=== PATIENT | male | born 1965 | race Caucasian/White ===

== ENCOUNTER 2022-10-30 12:00 | Observation (INO) ==
[2022-10-30] MEDS ORDERED: HYOSCYAMINE SULFATE ODT PO PRN (15:14)
[2022-10-30] MEDS ORDERED: NS 1,000 ML IV 1,000 ML ONE (15:36)
[2022-10-30 15:40] LABS: BASOPHILS # (AUTO) 0.1 X10^3/uL (0.0-0.1); BASOPHILS % (AUTO) 0.7 % (0.2-1.0); EOSINOPHILS % (AUTO) 0.4 % (0.9-2.9); HEMATOCRIT 37.6 % (42.0-54.0); HEMOGLOBIN 12.9 g/dL (13.5-18.0); LYMPHOCYTES % (AUTO) 13.2 % (21.0-51.0); MEAN CORPUSCULAR HEMOGLOBIN 29.5 pg (27.0-34.0); MEAN CORPUSCULAR HGB CONC 34.4 g/dL (33.0-35.0); MEAN CORPUSCULAR VOLUME 85.8 fL (80.0-100.0); MEAN PLATELET VOLUME 7.5 fL (7.4-11.0); MONOCYTES # (AUTO) 0.9 x10^3/uL (0.3-0.8); MONOCYTES % (AUTO) 11.7 % (0.0-13.0); NEUTROPHILS # (AUTO) 5.6 x10^3/uL (2.2-4.8); RED BLOOD COUNT 4.38 X10^6/uL (4.7-6.0); RED CELL DISTRIBUTION WIDTH 13.6 % (11.6-16.5); WHITE BLOOD COUNT 7.5 X10^3/uL (3.6-10.0)
[2022-10-30 15:41] LABS: ERYTHROCYTE SEDIMENTATION RATE 8 MM/HOUR (0-15)
[2022-10-30] MEDS: NS 1,000 ML IV 1,000 ML IV SCH (15:42)
[2022-10-30] MEDS: PROTONIX INJ 40 MG VIAL IVP SCH (15:42)
[2022-10-30 15:48] LABS: ALANINE AMINOTRANSFERASE 14 Units/L (12-78); ALBUMIN 3.5 g/dL (3.4-5.0); ALKALINE PHOSPHATASE 52 Units/L (46-116); ASPARTATE AMINO TRANSFERASE < 6 Units/L (15-37); BLOOD UREA NITROGEN 21 mg/dL (7-18); CALCIUM 8.7 mg/dL (8.5-10.1); CARBON DIOXIDE 29.3 mmol/L (21-32); CHLORIDE 97 mmol/L (98-107); COR NA(FOR HYPERGLY) 141 mmol/L (136-145); CREATINE KINASE 68 Units/L (39-308); CREATININE 2.69 mg/dL (0.70-1.30); SODIUM 135 mmol/L (136-145); TOTAL PROTEIN 6.1 g/dL (6.4-8.2); eGFR NON BLACK RACES 26 (>60)
[2022-10-30 15:50] LABS: BILIRUBIN,URINE NEGATIVE (NEGATIVE); BLOOD/HEMOGLOBIN,URINE 2+ (NEGATIVE); GLUCOSE, URINE 3+ (NEGATIVE); KETONES,URINE 1+ (NEGATIVE); LEUKOCYTE ESTERASE ,URINE 3+ (NEGATIVE); NITRITES,URINE NEGATIVE (NEGATIVE); PROTEIN,URINE 4+ (NEGATIVE); UROBILINOGEN,URINE NORMAL (NORMAL)
[2022-10-30 15:57] LABS: APPEARANCE,URINE HAZY (CLEAR); BACTERIA,URINE 2+ /HPF (NEGATIVE); COLOR,URINE YELLOW (YELLOW); SQUAMOUS EPITHELIAL CELL,UR FEW /HPF (NEGATIVE)
--- NOTE | 2022-10-30 16:43 | RAD ---
EXAM: CHEST X-RAYHISTORY: Dyspnea on exertion.TECHNIQUE: AP CXR dated October 30, 2022 at 3:24 PM.COMPARISON: None available.FINDINGS:The heart size and mediastinum are within normal limits. The lung palmer and costophrenic angles are clear. There is no acute parenchymal infiltrate, pleural effusion, or pneumothorax seen. The visualized bony structures are within normal limits.IMPRESSION:1. No evidence for acute cardiopulmonary disease seen.Electronically signed by: Zeke Jauregui (Oct 30, 2022 16:42:17)
[2022-10-30] MEDS: ROCEPHIN VIAL 1 GRAM 1 G in NS 100 ML IV 100 ML IV SCH (17:26)
[2022-10-30] MEDS ORDERED: NovoLIN R (or HumuLIN R) SUBCUT PRN (17:34)
[2022-10-30] MEDS: SNACK - Diabetic Appropriate PO SCH (21:12)
[2022-10-31] MEDS: NS 1,000 ML IV 1,000 ML IV SCH ×4 (01:44→20:41)
[2022-10-31 06:08] LABS: BASOPHILS # (AUTO) 0.1 X10^3/uL (0.0-0.1); EOSINOPHILS # (AUTO) 0.1 x10^3/uL (0.0-0.2); EOSINOPHILS % (AUTO) 1.7 % (0.9-2.9); HEMATOCRIT 36.1 % (42.0-54.0); HEMOGLOBIN 12.4 g/dL (13.5-18.0); LYMPHOCYTES # (AUTO) 1.6 X10^3/uL (1.3-2.9); LYMPHOCYTES % (AUTO) 21.2 % (21.0-51.0); MEAN CORPUSCULAR HEMOGLOBIN 29.3 pg (27.0-34.0); MEAN CORPUSCULAR HGB CONC 34.4 g/dL (33.0-35.0); MEAN CORPUSCULAR VOLUME 85.2 fL (80.0-100.0); MONOCYTES % (AUTO) 12.4 % (0.0-13.0); NEUTROPHILS # (AUTO) 4.9 x10^3/uL (2.2-4.8); NEUTROPHILS % (AUTO) 63.7 % (42.0-75.0); RED BLOOD COUNT 4.24 X10^6/uL (4.7-6.0); RED CELL DISTRIBUTION WIDTH 13.8 % (11.6-16.5); WHITE BLOOD COUNT 7.7 X10^3/uL (3.6-10.0)
[2022-10-31 06:32] LABS: ALANINE AMINOTRANSFERASE 13 Units/L (12-78); ALBUMIN 3.2 g/dL (3.4-5.0); ALKALINE PHOSPHATASE 48 Units/L (46-116); ASPARTATE AMINO TRANSFERASE < 6 Units/L (15-37); BLOOD UREA NITROGEN 24 mg/dL (7-18); CALCIUM 8.3 mg/dL (8.5-10.1); CARBON DIOXIDE 27.7 mmol/L (21-32); CHLORIDE 101 mmol/L (98-107); COR CA(FOR HYPOALB) 8.9 mg/dL (8.5-10.1); COR NA(FOR HYPERGLY) 140 mmol/L (136-145); CREATININE 2.52 mg/dL (0.70-1.30); SODIUM 138 mmol/L (136-145); TOTAL PROTEIN 5.8 g/dL (6.4-8.2); eGFR NON BLACK RACES 28 (>60)
[2022-10-31] MEDS: ARIMIDEX PO SCH (08:36)
[2022-10-31] MEDS: PROTONIX INJ 40 MG VIAL IVP SCH (08:39)
[2022-10-31] MEDS: ROCEPHIN VIAL 1 GRAM 1 G in NS 100 ML IV 100 ML IV SCH ×2 (08:43→08:44)
[2022-10-31] MEDS: ZOFRAN TAB 4 MG PO PRN (08:49)
[2022-10-31] MEDS ORDERED: ACTOS PO SCH (09:00)
[2022-10-31] MEDS ORDERED: FLOMAX PO SCH (09:00)
[2022-10-31] MEDS: MORPHINE SULFATE INJ 2 MG INJ IVP PRN ×2 (10:06→16:26)
[2022-10-31] MEDS: MYCOPHENOLATE SODIUM 360 MG PO SCH (10:18)
--- NOTE | 2022-10-31 13:55 | DR.H&P ---
H&P - History & Physical for Day of: H&P Date: 10/30/22 - Chief Complaint Chief Complaint: WEAK, FALL WITH HEAD INJURY - History of Present Illness History of Present Illness: PT IS 57 WM, DIRECT ADMIT WITH SEVERE WEAKNESS WITH MULTIPLE FALLS AND HEAD INJURY. 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 PT WAS STARTED ON CELLCEPT FOR NEPHRITIS. PT REPORTS INCREASED LOWER EXTREMITY WEAKNESS AND HYPOTENSION. - Past Medical History Past Medical History: Diabetes, GERD, Renal Disease - Past Surgical History Surgical History: No History - Family History Family Medical History: Diabetes Mellitus, GA, Hypertension - Social History Does patient currently use any type of tobacco product: No Have you used tobacco products in the last 12 months: No Type of Tobacco Use: None Does any household member use tobacco: No Alcohol Use: None Drug Use: None - Medications Home Medications: No Known Drug Allergies Allergy (Verified 07/30/20 12:40) - Review of Systems Constitutional: No Symptoms Reported Eyes: No Symptoms Reported ENT: No Symptoms Reported Respiratory: Shortness of Breath, SOB with Excertion Cardiovascular: No Symptoms Reported Gastrointestinal: No Symptoms Reported Genitourinary: No Symptoms Reported Musculoskeletal: No Symptoms Reported Skin: Bruising Neurological: Weakness, Other (FALLS) - Physical Exam Vital Signs: Temperature 98.4 F Pulse Rate [Right Radial] 82 Respiratory Rate 18 Blood Pressure [Left Arm] 197/89 Blood Pressure 158/77 O2 Sat by Pulse Oximetry 100 Oriented: Normal Ear: Normal Throat: Normal Respiratory: RLL Diminished, LLL Diminished Cardiovascular: Normal : Normal Auscultation: Bowel Sounds: Normal Palpation: Normal Tenderness: Suprapubic, Mild Skin: Decreased Turgur Musculoskeletal: Motor Deficit, Sensory Deficit Psychiatric: Anxiety Affect: Anxious Speech Pattern: Clear, Appropriate - Assessment/Plan (1) CKD stage 3 due to type 2 diabetes mellitus Status: Acute Plan: ACUTE ON CHRONIC RENAL FAILURE, GENTLE IV HYDRATION. STRICT I&OS, IV ROCEPHIN. BP CONTROL, VERIFY HOME MEDICATIONS. PT CONSULT (2) UTI (urinary tract infection) Status: Acute (3) Fall Status: Acute (4) Muscle weakness Status: Acute (5) CIDP (chronic inflammatory demyelinating polyneuropathy) Status: Acute - Allergies Allergies/Adverse Reactions: Allergies Allergy/AdvReac Type Severity Reaction Status Date / Time No Known Drug Allergies Allergy Verified 07/30/20 12:40
[2022-10-31] MEDS ORDERED: NORVASC TAB 5 MG PO SCH (14:00)
--- NOTE | 2022-10-31 14:02 | CT ---
ABDOMEN/PELVIS W/O CONHISTORY: ABD PAINComparison:NoneTechnique:Multiple non contrast axial images of the abdomen and pelvis were obtained from the lung bases to the pubic symphysis. Oral contrast was given . Dose reduction techniques including Automated Exposure Control (AEC) and adjustment of mA and kV were utlized.Findings:The sensitivity for focal lesion detection within the solid abdominal viscera is diminished without the use of IV contrast.The heart is normal in size. There is no pericardial effusion. Lung bases are clear without focal consolidation, pleural effusion or pneumothorax.Liver and spleen are normal in size, contour. No focal lesions. No ductal dilitation. Gallbladder is dilated measuring 4.8 cm. No definite gallstones present. Pancreas is atrophic. Adrenal glands are normal. Kidneys are without hydronephrosis or nephrolithiasis.No bowel obstruction or inflammation. Normal appendix. No abnormal appearing mesenteric or retroperitoneal lymph nodes. . No free fluid or fluid collections.The bladder is normal in appearance. Prostate measures 5.4 cm. No free fluid or abnormal pelvic lymph nodes.No aggressive osseous lesions.IMPRESSION:1.Gallbladder is dilated. Correlate with symptoms. No gallstones seen.Electronically signed by: LALA ARREDONDO (Oct 31, 2022 14:00:25)
[2022-10-31 17:45] LABS: AMYLASE 26 Units/L (25-115); LIPASE 47 Units/L (73-393)
[2022-10-31] MEDS: SNACK - Diabetic Appropriate PO SCH (20:44)
[2022-11-01] MEDS: MORPHINE SULFATE INJ 2 MG INJ IVP PRN ×2 (05:55→09:58)
[2022-11-01] MEDS: NS 1,000 ML IV 1,000 ML IV SCH ×3 (05:56→22:45)
[2022-11-01 06:18] LABS: BASOPHILS % (AUTO) 0.7 % (0.2-1.0); EOSINOPHILS # (AUTO) 0.1 x10^3/uL (0.0-0.2); EOSINOPHILS % (AUTO) 1.5 % (0.9-2.9); HEMATOCRIT 34.2 % (42.0-54.0); LYMPHOCYTES # (AUTO) 1.1 X10^3/uL (1.3-2.9); LYMPHOCYTES % (AUTO) 17.2 % (21.0-51.0); MEAN CORPUSCULAR HEMOGLOBIN 29.9 pg (27.0-34.0); MEAN CORPUSCULAR VOLUME 85.4 fL (80.0-100.0); MEAN PLATELET VOLUME 7.4 fL (7.4-11.0); MONOCYTES # (AUTO) 0.7 x10^3/uL (0.3-0.8); NEUTROPHILS # (AUTO) 4.6 x10^3/uL (2.2-4.8); NEUTROPHILS % (AUTO) 70.6 % (42.0-75.0); RED BLOOD COUNT 4.01 X10^6/uL (4.7-6.0); RED CELL DISTRIBUTION WIDTH 13.9 % (11.6-16.5); WHITE BLOOD COUNT 6.5 X10^3/uL (3.6-10.0)
[2022-11-01 06:48] LABS: ALBUMIN 2.9 g/dL (3.4-5.0); CALCIUM 8.2 mg/dL (8.5-10.1); COR CA(FOR HYPOALB) 9.1 mg/dL (8.5-10.1); CREATININE 1.68 mg/dL (0.70-1.30); TOTAL PROTEIN 5.5 g/dL (6.4-8.2)
[2022-11-01] MEDS: ROCEPHIN VIAL 1 GRAM 1 G in NS 100 ML IV 100 ML IV SCH (09:47)
[2022-11-01] MEDS: ARIMIDEX PO SCH (09:48)
[2022-11-01] MEDS: PROTONIX INJ 40 MG VIAL IVP SCH (09:52)
[2022-11-01 11:02] VITALS: BMI 29.7
[2022-11-01] MEDS: ZOSYN VIAL 3.375 GRAMS 3.375 G in NS 100 ML IV 100 ML IV SCH ×2 (15:07→22:44)
[2022-11-01] MEDS ORDERED: POTASSIUM CHLORIDE LIQ 20 MEQ UDC PO PRN (17:49)
[2022-11-01] MEDS ORDERED: K-DUR TAB 20 MEQ PO PRN (17:49)
[2022-11-01] MEDS ORDERED: KLOR-CON PO PRN (17:49)
[2022-11-01] MEDS ORDERED: POTASSIUM CHL 60 MEQ/NS 0.45% 500 ML IV PRN (17:49)
[2022-11-01] MEDS ORDERED: POTASSIUM CHL 40 MEQ/NS 0.45% 500 ML IV PRN (17:49)
[2022-11-01] MEDS ORDERED: MAGNESIUM SULFATE 1 GRAM/100 mL PREMIX 1 G/100 ML BAG IV PRN (17:49)
[2022-11-01] MEDS ORDERED: K-RIDER 10 MEQ/NS 100 ML 10 MEQ/100 ML BAG IV PRN (17:49)
[2022-11-01] MEDS ORDERED: MICRO K EXTEN CAP 10 MEQ PO PRN (17:49)
[2022-11-01] MEDS: SNACK - Diabetic Appropriate PO SCH (19:57)
[2022-11-01] MEDS ORDERED: FLOMAX PO SCH (21:00)
[2022-11-01] MEDS: MILK OF MAGNESIA PO SCH (21:01)
[2022-11-01] MEDS: COLACE CAP 100 MG PO SCH (21:03)
[2022-11-02] MEDS: NS 1,000 ML IV 1,000 ML IV SCH ×4 (01:56→20:31)
[2022-11-02] MEDS: MORPHINE SULFATE INJ 2 MG INJ IVP PRN ×4 (03:45→20:30)
[2022-11-02] MEDS: ZOSYN VIAL 3.375 GRAMS 3.375 G in NS 100 ML IV 100 ML IV SCH (05:21)
[2022-11-02 06:11] LABS: BASOPHILS % (AUTO) 0.9 % (0.2-1.0); EOSINOPHILS # (AUTO) 0.1 x10^3/uL (0.0-0.2); EOSINOPHILS % (AUTO) 1.9 % (0.9-2.9); HEMATOCRIT 33.8 % (42.0-54.0); HEMOGLOBIN 11.7 g/dL (13.5-18.0); LYMPHOCYTES # (AUTO) 0.9 X10^3/uL (1.3-2.9); LYMPHOCYTES % (AUTO) 16.9 % (21.0-51.0); MEAN CORPUSCULAR HEMOGLOBIN 29.5 pg (27.0-34.0); MEAN CORPUSCULAR HGB CONC 34.6 g/dL (33.0-35.0); MEAN CORPUSCULAR VOLUME 85.3 fL (80.0-100.0); MEAN PLATELET VOLUME 7.7 fL (7.4-11.0); MONOCYTES # (AUTO) 0.5 x10^3/uL (0.3-0.8); MONOCYTES % (AUTO) 9.6 % (0.0-13.0); NEUTROPHILS # (AUTO) 3.8 x10^3/uL (2.2-4.8); NEUTROPHILS % (AUTO) 70.7 % (42.0-75.0); RED BLOOD COUNT 3.97 X10^6/uL (4.7-6.0); RED CELL DISTRIBUTION WIDTH 13.6 % (11.6-16.5); WHITE BLOOD COUNT 5.4 X10^3/uL (3.6-10.0)
[2022-11-02 06:19] LABS: ALANINE AMINOTRANSFERASE 13 Units/L (12-78); ALBUMIN 2.8 g/dL (3.4-5.0); ALKALINE PHOSPHATASE 46 Units/L (46-116); ASPARTATE AMINO TRANSFERASE < 6 Units/L (15-37); BLOOD UREA NITROGEN 15 mg/dL (7-18); CALCIUM 8.1 mg/dL (8.5-10.1); CARBON DIOXIDE 28.2 mmol/L (21-32); CHLORIDE 104 mmol/L (98-107); COR CA(FOR HYPOALB) 9.1 mg/dL (8.5-10.1); COR NA(FOR HYPERGLY) 142 mmol/L (136-145); CREATININE 1.58 mg/dL (0.70-1.30); MAGNESIUM 2.1 mg/dL (2.0-2.9); SODIUM 139 mmol/L (136-145); TOTAL PROTEIN 5.3 g/dL (6.4-8.2); eGFR NON BLACK RACES 48 (>60)
[2022-11-02] MEDS: ZOFRAN TAB 4 MG PO PRN (07:46)
[2022-11-02] MEDS: PROTONIX INJ 40 MG VIAL IVP SCH (09:01)
[2022-11-02] MEDS: ARIMIDEX PO SCH (09:01)
[2022-11-02] MEDS: LEVAQUIN TAB 750 MG PO SCH (11:45)
[2022-11-02 14:58] LABS: BILIRUBIN,URINE NEGATIVE (NEGATIVE); BLOOD/HEMOGLOBIN,URINE 2+ (NEGATIVE); GLUCOSE, URINE 3+ (NEGATIVE); KETONES,URINE NEGATIVE (NEGATIVE); LEUKOCYTE ESTERASE ,URINE NEGATIVE (NEGATIVE); NITRITES,URINE NEGATIVE (NEGATIVE); PROTEIN,URINE 3+ (NEGATIVE); UROBILINOGEN,URINE NORMAL (NORMAL)
[2022-11-02 15:11] LABS: COLOR,URINE PALE YELLOW (YELLOW)
[2022-11-02 15:12] LABS: APPEARANCE,URINE CLEAR (CLEAR); BACTERIA,URINE TRACE /HPF (NEGATIVE); SQUAMOUS EPITHELIAL CELL,UR NEGATIVE /HPF (NEGATIVE)
--- NOTE | 2022-11-02 15:48 | RAD ---
HISTORYABD PAIN, NAUSEASTUDYACUTE x-ray ABDOMEN SERIES, one view chest and two views abdomenCOMPARISONAbdomen CT 10/31/22FINDINGSHeart is normal in size. No pneumothorax, focal infiltrate, or pleural effusion is seen. There is mild dilation of few jejunal loops up to 3.3 cm in diameter. Mild jejunal and ileal air is seen diffusely, though. Mild right-sided constipation is seen. No suspicious air-fluid levels are seen. No evidence of free intraperitoneal air.IMPRESSIONMild jejunal dilation with air is nonspecific. Gastroenteritis or mild ileus in the small bowel could cause the appearance. Early small-bowel obstruction is not completely excluded. Recommend follow-up abdomen series in 1 days time.Electronically signed by: Donald Laguerre (Nov 02, 2022 15:46:57)
[2022-11-02] MEDS: FLOMAX PO SCH (20:31)
[2022-11-02] MEDS: MILK OF MAGNESIA PO SCH (20:31)
[2022-11-02] MEDS: COLACE CAP 100 MG PO SCH (20:31)
[2022-11-02] MEDS: SNACK - Diabetic Appropriate PO SCH (20:50)
[2022-11-03] MEDS: ZOFRAN TAB 4 MG PO PRN (02:37)
[2022-11-03] MEDS: MORPHINE SULFATE INJ 2 MG INJ IVP PRN ×3 (02:38→21:27)
[2022-11-03] MEDS: NS 1,000 ML IV 1,000 ML IV SCH ×4 (04:55→21:32)
[2022-11-03 05:04] LABS: BASOPHILS # (AUTO) 0.1 X10^3/uL (0.0-0.1); BASOPHILS % (AUTO) 1.3 % (0.2-1.0); EOSINOPHILS # (AUTO) 0.1 x10^3/uL (0.0-0.2); EOSINOPHILS % (AUTO) 1.7 % (0.9-2.9); HEMOGLOBIN 12.1 g/dL (13.5-18.0); LYMPHOCYTES # (AUTO) 0.8 X10^3/uL (1.3-2.9); LYMPHOCYTES % (AUTO) 12.8 % (21.0-51.0); MEAN CORPUSCULAR HEMOGLOBIN 29.4 pg (27.0-34.0); MEAN CORPUSCULAR HGB CONC 34.5 g/dL (33.0-35.0); MEAN CORPUSCULAR VOLUME 85.3 fL (80.0-100.0); MEAN PLATELET VOLUME 7.6 fL (7.4-11.0); MONOCYTES # (AUTO) 0.6 x10^3/uL (0.3-0.8); MONOCYTES % (AUTO) 9.3 % (0.0-13.0); NEUTROPHILS # (AUTO) 4.8 x10^3/uL (2.2-4.8); NEUTROPHILS % (AUTO) 74.9 % (42.0-75.0); RED CELL DISTRIBUTION WIDTH 13.6 % (11.6-16.5); WHITE BLOOD COUNT 6.4 X10^3/uL (3.6-10.0)
[2022-11-03 05:18] LABS: ALANINE AMINOTRANSFERASE 14 Units/L (12-78); ALBUMIN 2.7 g/dL (3.4-5.0); ALKALINE PHOSPHATASE 43 Units/L (46-116); ASPARTATE AMINO TRANSFERASE 9 Units/L (15-37); BLOOD UREA NITROGEN 10 mg/dL (7-18); CALCIUM 8.2 mg/dL (8.5-10.1); CARBON DIOXIDE 30.3 mmol/L (21-32); CHLORIDE 104 mmol/L (98-107); COR CA(FOR HYPOALB) 9.2 mg/dL (8.5-10.1); COR NA(FOR HYPERGLY) 139 mmol/L (136-145); CREATININE 1.28 mg/dL (0.70-1.30); SODIUM 138 mmol/L (136-145); TOTAL PROTEIN 5.3 g/dL (6.4-8.2); eGFR NON BLACK RACES > 60 (>60)
--- NOTE | 2022-11-03 06:57 | RAD ---
HISTORYBack painSTUDYLumbar spine five viewsCOMPARISONNoneFINDINGSNo acute or significant abnormality is demonstrated involving the lumbar vertebrae with anatomic alignment. Disc spaces, pedicles, articular facets and sacroiliac joints are unremarkable.IMPRESSIONNo acute or significant findings.Electronically signed by: NICOLE ACUÑA (Nov 03, 2022 06:55:14)
[2022-11-03] MEDS: ARIMIDEX PO SCH (08:39)
[2022-11-03] MEDS: LEVAQUIN TAB 750 MG PO SCH (08:39)
[2022-11-03] MEDS: PROTONIX INJ 40 MG VIAL IVP SCH (08:39)
[2022-11-03] MEDS: FLOMAX PO SCH ×2 (08:39→21:27)
[2022-11-03] MEDS: PATIENT'S HOME MEDICATION PO SCH ×2 (08:40→21:29)
--- NOTE | 2022-11-03 09:55 | RAD ---
HISTORYPain nauseaSTUDYAbdomen series with AP chest four viewsCOMPARISONApril 2022FINDINGSSupine and semi-erect views of the abdomen were obtained. There is mild dilatation of small bowel segments in the left abdomen. Gas is present in the colon. There is no definite mass, ascites or visceral enlargement.IMPRESSIONIntestinal gas pattern consistent with ileus or partial SBO. Described semi supine views of the abdomen do not allow confident exclusion of pneumoperitoneum.Electronically signed by: NICOLE ACUÑA (Nov 03, 2022 09:54:40)
[2022-11-03] MEDS: MYCOPHENOLATE SODIUM 360 MG PO SCH (10:21)
[2022-11-03] MEDS: MILK OF MAGNESIA PO SCH (21:27)
[2022-11-03] MEDS: COLACE CAP 100 MG PO SCH (21:27)
[2022-11-03] MEDS: SNACK - Diabetic Appropriate PO SCH (21:28)
[2022-11-04 05:33] LABS: BASOPHILS % (AUTO) 0.7 % (0.2-1.0); EOSINOPHILS # (AUTO) 0.1 x10^3/uL (0.0-0.2); EOSINOPHILS % (AUTO) 1.6 % (0.9-2.9); HEMOGLOBIN 11.4 g/dL (13.5-18.0); MEAN CORPUSCULAR HEMOGLOBIN 29.3 pg (27.0-34.0); MEAN CORPUSCULAR HGB CONC 34.4 g/dL (33.0-35.0); MEAN CORPUSCULAR VOLUME 85.2 fL (80.0-100.0); MEAN PLATELET VOLUME 7.5 fL (7.4-11.0); MONOCYTES # (AUTO) 0.6 x10^3/uL (0.3-0.8); NEUTROPHILS # (AUTO) 3.9 x10^3/uL (2.2-4.8); NEUTROPHILS % (AUTO) 69.7 % (42.0-75.0); RED BLOOD COUNT 3.88 X10^6/uL (4.7-6.0); RED CELL DISTRIBUTION WIDTH 13.9 % (11.6-16.5); WHITE BLOOD COUNT 5.6 X10^3/uL (3.6-10.0)
[2022-11-04] MEDS: MORPHINE SULFATE INJ 2 MG INJ IVP PRN (05:33)
[2022-11-04 05:39] LABS: ALANINE AMINOTRANSFERASE 12 Units/L (12-78); ALBUMIN 2.5 g/dL (3.4-5.0); ALKALINE PHOSPHATASE 42 Units/L (46-116); ASPARTATE AMINO TRANSFERASE 6 Units/L (15-37); BLOOD UREA NITROGEN 13 mg/dL (7-18); CARBON DIOXIDE 29.6 mmol/L (21-32); CHLORIDE 104 mmol/L (98-107); COR CA(FOR HYPOALB) 9.2 mg/dL (8.5-10.1); COR NA(FOR HYPERGLY) 139 mmol/L (136-145); CREATININE 1.53 mg/dL (0.70-1.30); SODIUM 136 mmol/L (136-145); eGFR NON BLACK RACES 50 (>60)
[2022-11-04] MEDS: LEVAQUIN TAB 750 MG PO SCH (08:11)
[2022-11-04] MEDS: NS 1,000 ML IV 1,000 ML IV SCH ×3 (08:11→21:23)
[2022-11-04] MEDS: FLOMAX PO SCH ×2 (08:11→21:25)
[2022-11-04] MEDS: PROTONIX INJ 40 MG VIAL IVP SCH (08:13)
[2022-11-04] MEDS: PATIENT'S HOME MEDICATION PO SCH ×2 (08:18→21:28)
[2022-11-04] MEDS: ARIMIDEX PO SCH (08:24)
[2022-11-04] MEDS ORDERED: DULCOLAX SUPPOSITORY 10 MG RECTAL ONE (10:10)
[2022-11-04] MEDS: PERCOCET TAB 5/325 MG PO PRN ×2 (11:28→19:06)
[2022-11-04] MEDS: ZESTRIL TAB 5 MG PO SCH (11:29)
--- NOTE | 2022-11-04 13:53 | RAD ---
HISTORYPainSTUDYAbdomen series with PA chest four viewsCOMPARISONApril 2022FINDINGSSupine and upright views of abdomen demonstrate normal gas pattern without significant intestinal distention, obstruction, free air or mass formation. The accompanying frontal view of the chest is normal.IMPRESSIONInterval improvement in the intestinal distention. Normal findings are now demonstrated.Electronically signed by: NICOLE ACUÑA (Nov 04, 2022 13:52:20)
--- NOTE | 2022-11-04 14:34 | DR.PROGNOT ---
HOSPITAL PROGRESS NOTE Progress Note for Day of: Progress Note Date: 11/04/22 Chief Complaint Chief Complaint: still having abdominal pain aggravated with meals . nausea, no vomiting . repeated abdominal X Ray was normal . Past Medical Family Social History Past Med/Fam/Surg Hx: No changes since H&P Allergies: Allergies No Known Drug Allergies Allergy (Verified 07/30/20 12:40) Vital Signs Vital Signs: Temperature 97.7 F Pulse Rate [Right Radial] 76 Respiratory Rate 18 Blood Pressure [Right Arm] 163/86 Blood Pressure [Left Arm] 134/74 Blood Pressure 158/77 O2 Sat by Pulse Oximetry 96 Physical Exam Oriented: Normal Ear: Normal Throat: Normal Cardiovascular: Normal : Normal GI:Auscultation: Normal GI:Palpation: Normal (soft, flat abdomen , no masses , no organomegaly .BS+ but hypoactive .) GI: Tenderness: Suprapubic and Mild Skin: Decreased Turgur Musculoskeletal: Motor Deficit and Sensory Deficit Psychiatric: Anxiety Affect: Anxious Speech Pattern: Clear and Appropriate Laboratory and Diagnostics Result Diagrams: 11/04/22 05:00 11/04/22 05:00 Labs: 10/30/22 15:36 Urine,Clean Catch Urine Culture - Final Enterococcus Faecalis Laboratory WBC 5.6 X10^3/uL (3.6-10.0) 11/04/22 05:00 RBC 3.88 X10^6/uL (4.7-6.0) L 11/04/22 05:00 Hgb 11.4 g/dL (13.5-18.0) L 11/04/22 05:00 Hct 33.0 % (42.0-54.0) L 11/04/22 05:00 MCV 85.2 fL (80.0-100.0) 11/04/22 05:00 MCH 29.3 pg (27.0-34.0) 11/04/22 05:00 MCHC 34.4 g/dL (33.0-35.0) 11/04/22 05:00 RDW 13.9 % (11.6-16.5) 11/04/22 05:00 Plt Count 255 X10^3/uL (150.0-450.0) 11/04/22 05:00 MPV 7.5 fL (7.4-11.0) 11/04/22 05:00 Neut % (Auto) 69.7 % (42.0-75.0) 11/04/22 05:00 Lymph % (Auto) 17.0 % (21.0-51.0) L 11/04/22 05:00 [place] % (Auto) 11.0 % (0.0-13.0) 11/04/22 05:00 Eos % (Auto) 1.6 % (0.9-2.9) 11/04/22 05:00 Baso % (Auto) 0.7 % (0.2-1.0) 11/04/22 05:00 Neut # (Auto) 3.9 x10^3/uL (2.2-4.8) 11/04/22 05:00 Lymph # (Auto) 1.0 X10^3/uL (1.3-2.9) L 11/04/22 05:00 [place] # (Auto) 0.6 x10^3/uL (0.3-0.8) 11/04/22 05:00 Eos # (Auto) 0.1 x10^3/uL (0.0-0.2) 11/04/22 05:00 Baso # (Auto) 0.0 X10^3/uL (0.0-0.1) 11/04/22 05:00 Absolute Nucleated RBC 0.0 /100WBC 11/04/22 05:00 ESR 8 MM/HOUR (0-15) 10/30/22 15:22 Sodium 136 mmol/L (136-145) 11/04/22 05:00 Corrected Sodium 139 mmol/L (136-145) 11/04/22 05:00 Potassium 3.9 mmol/L (3.5-5.1) 11/04/22 05:00 Chloride 104 mmol/L (98-107) 11/04/22 05:00 Carbon Dioxide 29.6 mmol/L (21-32) 11/04/22 05:00 BUN 13 mg/dL (7-18) 11/04/22 05:00 Creatinine 1.53 mg/dL (0.70-1.30) H 11/04/22 05:00 Est GFR (MDRD) Af Amer > 60 (>60) 11/04/22 05:00 Est GFR (MDRD) Non-Af 50 (>60) L 11/04/22 05:00 Glucose 217 mg/dL (65-99) H 11/04/22 05:00 POC Glucose (mg/dL) 188 mg/dL (65-99) H 11/04/22 11:31 Hemoglobin A1c 6.7 % 10/31/22 05:25 Calcium 8.0 mg/dL (8.5-10.1) L 11/04/22 05:00 Corrected Calcium 9.2 mg/dL (8.5-10.1) 11/04/22 05:00 Magnesium 2.1 mg/dL (2.0-2.9) 11/02/22 05:21 Total Bilirubin 0.30 mg/dL (0.2-1.0) 11/04/22 05:00 AST 6 Units/L (15-37) L 11/04/22 05:00 ALT 12 Units/L (12-78) 11/04/22 05:00 Alkaline Phosphatase 42 Units/L (46-116) L 11/04/22 05:00 Creatine Kinase 68 Units/L (39-308) 10/30/22 15:22 C-Reactive Protein < 0.50 mg/L (0-3.0) 10/30/22 15:22 Total Protein 5.0 g/dL (6.4-8.2) L 11/04/22 05:00 Albumin 2.5 g/dL (3.4-5.0) L 11/04/22 05:00 Globulin 2.5 g/dL (2.5-4.5) 11/04/22 05:00 Albumin/Globulin Ratio 1.0 Ratio (1.1-2.1) L 11/04/22 05:00 Amylase 26 Units/L (25-115) 10/31/22 05:25 Lipase 47 Units/L (73-393) L 10/31/22 05:25 Specimen Type Catherized urine 11/02/22 14:30 Urine Color Pale yellow (YELLOW) 11/02/22 14:30 Urine Appearance Clear (CLEAR) 11/02/22 14:30 Urine pH 7.0 (5.0 - 8.0) 11/02/22 14:30 Ur Specific [place] 1.010 (1.000-1.030) 11/02/22 14:30 Urine Protein 3+ (NEGATIVE) 11/02/22 14:30 Urine Glucose (UA) 3+ (NEGATIVE) 11/02/22 14:30 Urine Ketones Negative (NEGATIVE) 11/02/22 14:30 Urine Blood 2+ (NEGATIVE) 11/02/22 14:30 Urine Nitrite Negative (NEGATIVE) 11/02/22 14:30 Urine Bilirubin Negative (NEGATIVE) 11/02/22 14:30 Urine Urobilinogen Normal (NORMAL) 11/02/22 14:30 Ur Leukocyte Esterase Negative (NEGATIVE) 11/02/22 14:30 Urine RBC 5-10 /HPF (0-3) A 11/02/22 14:30 Urine WBC 0-2 /HPF (0-5) 11/02/22 14:30 Ur Squamous Epith Cells Negative /HPF (NEGATIVE) 11/02/22 14:30 Amorphous Sediment 1+ /HPF (NEGATIVE) 10/30/22 15:36 Urine Bacteria Trace /HPF (NEGATIVE) 11/02/22 14:30 Urine Mucus Few /HPF (NEGATIVE) 10/30/22 15:36 Ur Culture Indicated? No/not indicated 11/02/22 14:30 Assessment and Plan 1: persistent post brandial pain and nausea . for GB US and EGD in am .. 2: UTI , CKD .auto immune disease . same treatment plan . Problem Patient Problems: Patient Problems (Updated 10/31/22 @ 13:55 by ALYSSA HDEZ) CKD stage 3 due to type 2 diabetes mellitus (Acute) E11.22, N18.30 CIDP (chronic inflammatory demyelinating polyneuropathy) (Acute) G61.81 UTI (urinary tract infection) (Acute) N39.0 Fall (Acute) W19.XXXA Muscle weakness (Acute) M62.81
[2022-11-04] MEDS: COLACE CAP 100 MG PO SCH (21:24)
[2022-11-04] MEDS: MILK OF MAGNESIA PO SCH (21:24)
[2022-11-04] MEDS: SNACK - Diabetic Appropriate PO SCH (21:27)
[2022-11-05] MEDS: PERCOCET TAB 5/325 MG PO PRN ×2 (00:10→12:06)
[2022-11-05] MEDS ORDERED: ZOFRAN INJ 4 MG VIAL IVP PRN (05:05)
[2022-11-05 05:51] LABS: BASOPHILS # (AUTO) 0.1 X10^3/uL (0.0-0.1); BASOPHILS % (AUTO) 0.9 % (0.2-1.0); EOSINOPHILS # (AUTO) 0.1 x10^3/uL (0.0-0.2); HEMATOCRIT 35.8 % (42.0-54.0); HEMOGLOBIN 12.3 g/dL (13.5-18.0); LYMPHOCYTES # (AUTO) 1.1 X10^3/uL (1.3-2.9); MEAN CORPUSCULAR HEMOGLOBIN 29.3 pg (27.0-34.0); MEAN CORPUSCULAR HGB CONC 34.4 g/dL (33.0-35.0); MEAN CORPUSCULAR VOLUME 85.2 fL (80.0-100.0); MEAN PLATELET VOLUME 7.6 fL (7.4-11.0); MONOCYTES # (AUTO) 0.6 x10^3/uL (0.3-0.8); MONOCYTES % (AUTO) 10.1 % (0.0-13.0); NEUTROPHILS # (AUTO) 4.2 x10^3/uL (2.2-4.8); RED CELL DISTRIBUTION WIDTH 13.7 % (11.6-16.5); WHITE BLOOD COUNT 6.1 X10^3/uL (3.6-10.0)
[2022-11-05 06:03] LABS: ALANINE AMINOTRANSFERASE 13 Units/L (12-78); ALBUMIN 2.9 g/dL (3.4-5.0); ALKALINE PHOSPHATASE 49 Units/L (46-116); ASPARTATE AMINO TRANSFERASE 6 Units/L (15-37); BLOOD UREA NITROGEN 14 mg/dL (7-18); CALCIUM 8.5 mg/dL (8.5-10.1); CARBON DIOXIDE 28.7 mmol/L (21-32); CHLORIDE 104 mmol/L (98-107); COR CA(FOR HYPOALB) 9.4 mg/dL (8.5-10.1); COR NA(FOR HYPERGLY) 142 mmol/L (136-145); CREATININE 1.43 mg/dL (0.70-1.30); SODIUM 140 mmol/L (136-145); TOTAL PROTEIN 5.8 g/dL (6.4-8.2); eGFR NON BLACK RACES 54 (>60)
[2022-11-05] MEDS ORDERED: NS 500 ML IV 500 ML IV ONE (08:16)
[2022-11-05] MEDS: ZESTRIL TAB 5 MG PO SCH ×2 (08:35→12:05)
[2022-11-05] MEDS: PATIENT'S HOME MEDICATION PO SCH ×2 (08:35→12:07)
[2022-11-05] MEDS: ARIMIDEX PO SCH ×2 (08:35→12:05)
[2022-11-05] MEDS: LEVAQUIN TAB 750 MG PO SCH ×2 (08:36→12:05)
[2022-11-05] MEDS: PROTONIX INJ 40 MG VIAL IVP SCH (08:38)
[2022-11-05] MEDS: FLOMAX PO SCH ×2 (08:38→12:05)
[2022-11-05] MEDS ORDERED: DIPRIVAN VIAL 20 ML ONE (08:44)
[2022-11-05] MEDS: NS 1,000 ML IV 1,000 ML IV SCH ×2 (10:52→12:07)
[2022-11-05 12:15] VITALS: BP 192/74
--- NOTE | 2022-11-05 13:50 | US ---
HISTORY: Abdominal pain, nausea, and constipation.Study: Right upper quadrant abdominal ultrasound exam.Comparison: Abdominopelvic CT examination dated October 31, 2022Technique: Multiple cadena scale and color flow Doppler images of the right upper quadrant were obtained.Findings:The liver is heterogeneously echogenic/fatty in appearance. No focal intraparenchymal mass or intrahepatic biliary ductal dilatation can be observed. The gallbladder is distended and filled with gallbladder sludge without gallstones identified. The common bile duct is unremarkable measuring 4 mm. [No pericholecystic fluid or gallbladder wall thickening can be observed]. The CBD measures [within normal limits]. The right kidney appears normal in size without focal parenchymal mass or nephrolithiasis. The right kidney measurers 14 x 6 cm. No hydronephrosis or perirenal fluid can be observed. The pancreas is largely obscured by overlying bowel gas. No ascites is evident in this patient.IMPRESSION: The liver is heterogeneously echogenic/fatty in appearance, suggesting hepatic steatosis. The gallbladder is abnormally distended and demonstrates intraluminal gallbladder sludge which should be followed up nuclear medicine imaging to exclude chronic cholecystitis in this patient. No definitive gallstones are seen, however.No other significant right upper quadrant sonographic abnormalities are appreciated.Electronically signed by: MO VILLAVICENCIO III (Nov 05, 2022 13:44:19)
== END 2022-11-05 15:10 | disposition home health service (06) ==
LOC: ICU → OBSVTOIN 13:51 → INTOOBSV 13:51 → MED/SURG 13:52
PROVIDERS: ADMIT Internal Medicine; ATTEND Internal Medicine
DX: W18.39XA Other fall on same level, initial encounter; B96.29 Other Escherichia coli [E. coli] as the cause of diseases classified elsewhere; J44.9 Chronic obstructive pulmonary disease, unspecified; K29.00 Acute gastritis without bleeding; R63.4 Abnormal weight loss; I95.89 Other hypotension; R10.84 Generalized abdominal pain